=== PATIENT | male | born 1970 | race Caucasian/White ===

== ENCOUNTER 2021-12-28 06:09 | Emergency (ER) | payer OTHER, BC ==
[2021-12-28] MEDS ORDERED: Lidocaine 2% 20 ML MDV INFILT ONE (06:10)
[2021-12-28] MEDS ORDERED: Diphtheria,Pertussis(Acell),Tetanus Vaccine 0.5 ML Syringe IM ONE (07:05)
== END 2021-12-28 07:15 | disposition home or self-care (01) ==
LOC: FB.ED 06:09
DX: S61.211A Laceration without foreign body of left index finger without damage to nail, initial encounter (principal); Z23 Encounter for immunization; W26.8XXA Contact with other sharp object(s), not elsewhere classified, initial encounter; Y99.0 Civilian activity done for income or pay
CPT/HCPCS: 12001; 90471; 90715; 99282

== ENCOUNTER 2024-03-05 16:17 | Emergency (ER) | payer OTHER, BC ==
[2024-03-05] MEDS ORDERED: Lidocaine 1% 5 ML VIAL INFILT ONE (16:18)
[2024-03-05] MEDS: Cephalexin 500 MG Cap PO ONE (17:20)
== END 2024-03-05 17:27 | disposition home or self-care (01) ==
LOC: FB.ED 16:17
DX: S61.223A Laceration with foreign body of left middle finger without damage to nail, initial encounter (principal); I10 Essential (primary) hypertension; Z79.899 Other long term (current) drug therapy; W23.0XXA Caught, crushed, jammed, or pinched between moving objects, initial encounter
CPT/HCPCS: 12002; 73140; 99283; A9270